=== PATIENT | male | born 1935 | race Caucasian/White ===

== ENCOUNTER 2019-06-24 09:02 | Inpatient (IN) | payer MEDICARE ==
[~2019-06-24] VITALS: Ht 173 cm; Wt 68.0 kg
[2019-06-24] VITALS (13 sets, daily range): BP systolic 88–152; BP diastolic 59–107
[~2019-06-24 09:02] MED LIST: ALL DAY RELIEF220 MG PO; ASPIRIN CHEWABL81 MG PO; DILANTIN100 MG PO; KEPPRA750 MG PO; LEVEMIR FL100 UNIT/1 SQ; LEVOXYL75 MCG PO; LIPITOR20 MG PO; MEGACE 40400 MG/10 PO; METOPROLOL SUCC25 M2 PO; NOVOLOG FL100 UNIT/2 SQ; SENOKOT8.6 MG PO; VITAMIN D50000 UNIT PO
[2019-06-24 09:34] LABS: BASO # 0.1 10*3/uL (0.0-0.1); BASO % 0.5 % (0.0-1.0); EOS # 0.1 10*3/uL (0.0-0.4); EOS % 0.4 % (1.0-4.0); HEMATOCRIT 46.4 % (42.0-52.0); HEMOGLOBIN 14.7 g/dl (14.0-18.0); LYMPH # 0.7 10*3/uL (1.3-4.4); LYMPH % 5.4 % (27.0-41.0); MEAN CELL VOLUME 97.3 fl (80.0-94.0); MEAN CORPUSCULAR HGB 30.8 pg (27.0-31.0); MEAN CORPUSCULAR HGB CONC 31.7 g/dl (33.0-37.0); MEAN PLATELET VOLUME 9.7 fl (9.6-12.3); MONO # 1.2 10*3/uL (0.1-1.0); MONO % 9.9 % (3.0-9.0); NEUT # 10.4 10*3/uL (2.3-7.9); NEUT % 82.7 % (47.0-73.0); PLATELET COUNT AUTOMATED 335 10*3/uL (130-400); RED BLOOD COUNT 4.77 10*6/uL (4.50-5.90); RED CELL DISTRI WIDTH 13.3 % (0-14.5); WHITE BLOOD COUNT 12.6 10*3/uL (4.8-10.8)
[2019-06-24 09:42] LABS: ACT PARTIAL THROMBO TIME 31.2 SECONDS (20.0-32.1); INTERNATIONAL NORM RATIO 0.9 (2.0-3.5)
[2019-06-24 09:47] LABS: ALBUMIN 2.9 gm/dl (3.1-4.5); ALKALINE PHOSPHATASE 153 U/L (45-117); BUN 20 mg/dl (7-24); CHLORIDE 106 mmol/L (98-107); CREATININE 1.55 mg/dL (0.70-1.30); POTASSIUM 4.4 mmol/L (3.5-5.1); SGOT/AST 28 IU/L (3-35); SGPT/ALT 43 U/L (12-78); SODIUM 141 mmol/L (136-145)
[2019-06-24 09:55] LABS: TROPONIN I < 0.015 ng/ml (<0.045)
--- NOTE | 2019-06-24 10:18 | NUR ---
PT HAD A CHANDE OF RYTHYM TO SVT. DR DOS SANTOS ADVISED.
[2019-06-24 10:51] LABS: BILIRUBIN NEGATIVE (NEGATIVE); BLOOD TRACE-INTACT (NEGATIVE); CLARITY SL CLOUDY (CLEAR); COLOR YELLOW (YELLOW); GLUCOSE 1+ (NEGATIVE); KETONE TRACE (NEGATIVE); LEUKO ESTERASE NEGATIVE (NEGATIVE); NITRITE NEGATIVE (NEGATIVE); PH 7.5 (5.0-9.0); UROBILINOGEN 0.2 E.U./dl (0.2-1.0)
[2019-06-24 10:58] LABS: BACTERIA 1+; MUCOUS 2+
[2019-06-24 11:01] LABS: ABG BASE EXCESS 1.8 mmol/L (-2.0-2.0); ARTERIAL BLOOD GAS PH 7.301 (7.35-7.45)
--- NOTE | 2019-06-24 11:30 | NUR ---
O.9 NS USED ONLY FOR ADENOSINE ADMINISTRATION AND GARETT DOWN
--- NOTE | 2019-06-24 11:49 | NUR ---
A 84, admitted to ICCU, under the services of ZAY Olguin DO with a diagnosis of SVT, SHORTNESS OF BREATH. Chief complaint is SHORTNESS OF BREATH. Patient arrived via ambulance from ER. Monitor applied. Initial assessment completed. Vital signs taken and recorded. ZAY OLGUIN DO notified of admission to the unit. Orders received. See assessment for past medical history, medications and allergies. Patient and/or family oriented to unit. [facility] ICCU visitation policy reviewed. Clothing/patient valuable form completed. KIMBERLEY DIALLO
[2019-06-24] MEDS ORDERED: BOOST237 ML PO (12:20)
--- NOTE | 2019-06-24 12:21 | NUR ---
MEDS RECONCILED WITH RECORDS FROM [place]. PT UP TO USE URINAL. HR TO 150'S WITH THIS ACTIVITY.
--- NOTE | 2019-06-24 12:46 | NUR ---
DR CHAIDEZ HERE TO SEE PT, AWARE HIS HR IS ELEVATED. SHE IS CALLING DR ORTIZ FOR DIRECTION.
--- NOTE | 2019-06-24 15:01 | NUR ---
DR ORTIZ VISITED EARLIER WHILE PT WAS STILL IN SVT. CARDIZEM 10 MG BOLUS WAS GIVEN THEN DRIP AT 5MG/HR. IV DIGOXIN PER ORDER. PT'S HR CAME TO 80'S WITHIN MINUTES OF INITIATION OF THESE MEDS. PT ATE HIS LUNCH. HE'S TAKEN HIMSELF OFF THE MONITOR SEVERAL TIMES AND IS VERY ANGRY THAT HE CAN'T GET UP AND GO TO THE BATHROOM. "THIS IS A JAIL". HE'S HAD 2 LITER NS BOLUS. HE WAS INCONTINENT LARGE AMOUNT OF URINE IN ADDITION TO USING URINAL WITH ASSIST, AGAIN ANGRY THAT I HAVE TO HELP HIM USE THE URINAL. HIS HR BACK TO 130'S AT THIS TIME. CARDIZEM INCREASED TO 10MG/HR.
--- NOTE | 2019-06-24 15:57 | NUR ---
MICHAEL CALLED TO CHECK ON PATIENT AND SAID IS BEHAVIOR IS "HARD" BECAUSE HE "DOESN'T HAVE MANY RESTRICTIONS" AND "HE'S STABLE TO TAKE HIMSELF TO THE BATHROOM". DR CHAIDEZ VISITED AND MADE AWARE THAT HR BACK UP, CARDIZEM INCREASED TO 10MG/HR. SHE CALLED DR ORTIZ AND ENTERED ORDERS THAT HE RECOMMENDED.
--- NOTE | 2019-06-24 16:31 | NUR ---
IV LOPRESSOR 5MG GIVEN OVER 5 MINUTES. HR TO 70'S WITHIN MINUTES.
--- NOTE | 2019-06-24 17:19 | NUR ---
DR MATHIS NOTIFIED OF NEW CONSULTATION. WANTS A SET OF ABG'S NOW.
[2019-06-24 17:45] LABS: ABG BASE EXCESS -0.5 mmol/L (-2.0-2.0); ARTERIAL BLOOD GAS PH 7.243 (7.35-7.45)
--- NOTE | 2019-06-24 18:31 | NUR ---
DR MATHIS NOTIFIED OF ABG RESULTS. ORDERS RECEIVED.
--- NOTE | 2019-06-24 22:30 | NUR ---
PATIENT BATHED AT THIS TIME, AFTER INCONTINENT OF LARGE INCONTINENCE OF URINE IN THE BED. CLEAN LINENS AND DRY BRIEF APPLIED. PATIENT DENIES COMPLAINTS. HAS BEEN WEARING BIPAP APPROXIMATELY 2 HOURS. CALL LIGHT WITHIN REACH. BED ALARM APPLIED AND ALSO BODY ALRAM DUE TO PATIENT MOVING FAST AND NOT ALWAYS SETTING BED ALARM OFF.
[2019-06-25] VITALS (12 sets, daily range): BP systolic 90–135; BP diastolic 59–77
--- NOTE | 2019-06-25 03:25 | NUR ---
Patient resting quietly with no c/o discomfort. Respirations easy and regular. Vital signs stable. No overt distress. RIGO KRISHNA
[2019-06-25 05:32] LABS: ALBUMIN 2.3 gm/dl (3.1-4.5); BUN 22 mg/dl (7-24); CHLORIDE 110 mmol/L (98-107); HDL CHOLESTEROL 32 mg/dl (40-60); POTASSIUM 4.3 mmol/L (3.5-5.1); SGOT/AST 23 IU/L (3-35); SODIUM 145 mmol/L (136-145); TOTAL PROTEIN 5.9 gm/dL (6.4-8.2)
[2019-06-25 05:43] LABS: ALKALINE PHOSPHATASE 137 U/L (45-117); CHOLESTEROL 116 mg/dL (<200); CREATININE 1.25 mg/dL (0.70-1.30); LDL CHOLESTEROL 67 mg/dL (9-159); PHOSPHOROUS 3.8 mg/dL (2.5-4.9); SGPT/ALT 42 U/L (12-78); TRIGLYCERIDES 84 mg/dl (<150); VLDL CHOLESTEROL 17 mg/dL (6-40)
[2019-06-25 06:13] LABS: HEMOGLOBIN 12.8 g/dl (14.0-18.0); MEAN CELL VOLUME 99.8 fl (80.0-94.0); MEAN CORPUSCULAR HGB 31.1 pg (27.0-31.0); MEAN CORPUSCULAR HGB CONC 31.2 g/dl (33.0-37.0); MEAN PLATELET VOLUME 10.2 fl (9.6-12.3); PLATELET COUNT AUTOMATED 300 10*3/uL (130-400); RED BLOOD COUNT 4.11 10*6/uL (4.50-5.90); RED CELL DISTRI WIDTH 13.6 % (0-14.5)
--- NOTE | 2019-06-25 07:15 | NUR ---
Shift chart check completed.24 HR chart check completed.
[2019-06-25 07:28] LABS: ABG BASE EXCESS 0.1 mmol/L (-2.0-2.0); ARTERIAL BLOOD GAS PH 7.338 (7.35-7.45)
[2019-06-25 07:31] LABS: BURR CELLS FEW; POLYCHROMASIA SLIGHT; TOTAL CELLS COUNTED 100 #CELLS
[2019-06-25 07:32] LABS: PLATELET SUFFICIENCY NORMAL (NORMAL)
[2019-06-25 07:39] LABS: VITAMIN D, 25-HYDROXY 35.7 ng/mL (30-100)
--- NOTE | 2019-06-25 08:44 | NUR ---
Faxed updated clinicals to [facility] for review. Patient is ok to return to assisted living when medically stable for discharge. Patient does not currently use oxygen at home.
--- NOTE | 2019-06-25 09:22 | NUR ---
Occupational therapy orders received and chart reviewed. Patient was eating breakfast upon arrival. Patient was agreeable to completing an OT evaluation later this morning. Thank you. Sanaz Davalos, OTR/L
--- NOTE | 2019-06-25 09:25 | NUR ---
PHYSICAL THERAPY Attempted to see pt for evaluation in ICU presently eating breakfast, also awaiting results of doppler studies will follow late in the AM/PM Helen Almeida PT
--- NOTE | 2019-06-25 09:29 | NUR ---
ON ASSESSMENT PATIENT IS CALM, KNOWS HE'S IN THE HOSPITAL, THOUGHT HE WAS IN LOWELL. PT ACCOMPANIED TO RADIOLOGY FOR CTA (IV INFILTRATED DURING PROCEDURE), AND VENOUS DOPPLERS. PT TOLERATED WELL. AT ONE POINT WHILE OFF THE FLOOR THE MONITOR ALARMED AT 45. CARDIZEM HAD BEEN ON AT 5MG/HR, TURNED OFF AND HAS REMAINED OFF. ON REVIEW OF THE STRIP THE 45 HR APPEARED TO BE ARTIFACT. IV FLUIDS CONTINUE AT 100/HR. DR BEAVERS HAS VISITED.
--- NOTE | 2019-06-25 12:26 | NUR ---
RESTING EASILY. BIPAP IN PLACE.
--- NOTE | 2019-06-25 12:30 | NUR ---
Occupational therapy orders received and OT evaluation completed in full on floor four in the ICCU. Patient precautions include fall risk, ww use, R UE IV line, heart monitor, 4L02, and s/p crani with helmet for OOB activity. Per OT eval and POC, OT recommends a SNF. Patient would benefit from skilled OT treatment to maximize safety and independence with ADLs, mobility, and transfers. Patient complexity is moderate, 57047. Thank you for the referral. Sanaz Davalos, OTR/L
--- NOTE | 2019-06-25 12:58 | NUR ---
DR ORTIZ IN. REVIEWED MEDS/RHYTHM WITH HIM. ORDERS RECEIVED.
--- NOTE | 2019-06-25 13:35 | NUR ---
UP IN CHAIR, ATE WELL FOR LUNCH. ORAL CARDIZEM CD 180 GIVEN. CARDIZEM DRIP DECREASED BY 50%. FORESTRY EXTENSION SPECIALIST AWARE PT IS NOW TELEMETRY STATUS.
--- NOTE | 2019-06-25 13:56 | NUR ---
PHYSICAL THERAPY James completed moderate level of complexity 31095 recomend SNF at discharge pending progess with ambulation. PT to work on transfers,amb, strenghthening/balanc and safety. Helen Almeida PT
--- NOTE | 2019-06-25 14:37 | NUR ---
ASSISTED BACK TO BED. IVF BAG COMPLETED AND D/C. CARDIZEM DRIP D/C ORAL CARDIZEM CD HAS BEEN GIVEN. BED IN LOW POSITION WITH WHEELS LOCKED. BED EXIT ALARM ACTIVATED.
--- NOTE | 2019-06-25 14:39 | NUR ---
RELEASE OF INFORMATION WAS SIGNED TO [facility] THIS AM WHEN PT'S DAUGHTER WAS HERE.
--- NOTE | 2019-06-25 15:18 | NUR ---
PT'S GIRLFRIEND CALLED AND UPDATES GIVEN.
[2019-06-26] VITALS: BP 107/63
[2019-06-26 04:00] VITALS: BP 125/76
[2019-06-26 05:35] LABS: BASO % 0.3 % (0.0-1.0); EOS # 0.2 10*3/uL (0.0-0.4); EOS % 1.6 % (1.0-4.0); HEMATOCRIT 41.7 % (42.0-52.0); HEMOGLOBIN 12.8 g/dl (14.0-18.0); LYMPH # 0.8 10*3/uL (1.3-4.4); LYMPH % 7.9 % (27.0-41.0); MEAN CORPUSCULAR HGB 30.4 pg (27.0-31.0); MEAN CORPUSCULAR HGB CONC 30.7 g/dl (33.0-37.0); MONO # 1.2 10*3/uL (0.1-1.0); MONO % 11.1 % (3.0-9.0); NEUT # 8.2 10*3/uL (2.3-7.9); NEUT % 78.3 % (47.0-73.0); PLATELET COUNT AUTOMATED 284 10*3/uL (130-400); RED BLOOD COUNT 4.21 10*6/uL (4.50-5.90); RED CELL DISTRI WIDTH 13.5 % (0-14.5); WHITE BLOOD COUNT 10.5 10*3/uL (4.8-10.8)
[2019-06-26 05:41] LABS: BUN 22 mg/dl (7-24); CHLORIDE 108 mmol/L (98-107); CREATININE 1.08 mg/dL (0.70-1.30); POTASSIUM 4.6 mmol/L (3.5-5.1); SODIUM 142 mmol/L (136-145)
[2019-06-26 08:00] VITALS: BP 133/80
--- NOTE | 2019-06-26 08:00 | NUR ---
PATIENT AO X 3 AWAITING BREAKFAST. NO COMPLAINTS, POX 96% 4L NC.
[2019-06-26 12:00] VITALS: BP 122/72
--- NOTE | 2019-06-26 14:55 | NUR ---
DR. HAN HERE AND SAW PATIENT IN SVT THAT BROKE TO SINUS TACHY. ORDER FOR 60 ADDITIONAL PO CARDIZEM TO BE GIVEN.
[2019-06-26 16:00] VITALS: BP 125/64
--- NOTE | 2019-06-26 19:50 | NUR ---
24 HOUR CHART CHECK COMPLETED
[2019-06-26 20:00] VITALS: BP 142/93
--- NOTE | 2019-06-26 20:30 | NUR ---
PATIENT ASSESSMENT COMPLETED AT THIS TIME WITHOUT INCIDENT. PATIENT ALERT TO PERSON AND TIME ONLY AT TIME OF ASSESSMENT. MEDICATIONS GIVEN ORALLY WITHOUT INCIDENT, MEDICATIONS EXPLAINED TO PATIENT THEY WERE GIVEN PER HIS REQUEST. BED ALARM ON AND FUNCTIONAL AT THIS TIME. CALL LIGHT WITHIN REACH, WILL CONTINUE TO MONITOR.
--- NOTE | 2019-06-26 22:09 | NUR ---
DR ORTIZ ANSWERING SERVICE CONTACTED FOR PATIENT HR 170-180. MESSAGE LEFT AND PAGE SENT PER GENEVA AT ANSWERING SERVICE.
--- NOTE | 2019-06-26 22:14 | NUR ---
DR. ORTIZ RETURNED CALL, ORDERS RECEIVED AT THIS TIME, SEE EMAR.
--- NOTE | 2019-06-26 22:25 | NUR ---
ORDERED CARDIZEM BOLUS HELD AT THIS TIME DUE TO PATIENT HEART RATE IN THE 90'S-104 AT THIS TIME. PATIENT CURRENTLY ON BIPAP AND RESTING IN A POSITION OF COMFORT IN BED. CALL LIGHT WITHIN REACH, WILL CONTINUE TO MONITOR.
[2019-06-27] VITALS: BP 116/76
[2019-06-27 04:00] VITALS: BP 121/78
--- NOTE | 2019-06-27 04:05 | NUR ---
PATIENT ASSISTED TO BEDSIDE COMMODE AT THIS TIME, HELMET PLACED ON PATIENT HEAD PRIOR TO LEAVING THE BED. PATIENT VOIDED URINE AND RETURNED TO BED, HELMET REMOVED. PATIENT DENIES ANY PAIN AT THIS TIME. CURRENTLY ON NC 4LPM. MONITOR AND PULSE OX IN USE. MOIST, NON-PRODUCTIVE COUGH NOTED AT THIS TIME. CALL LIGHT WITHIN REACH, WILL CONTINUE TO MONITOR.
[2019-06-27 06:09] LABS: BUN 19 mg/dl (7-24); CHLORIDE 109 mmol/L (98-107); POTASSIUM 4.2 mmol/L (3.5-5.1); SODIUM 142 mmol/L (136-145)
[2019-06-27 06:13] LABS: BASO # 0.1 10*3/uL (0.0-0.1); BASO % 0.5 % (0.0-1.0); EOS # 0.2 10*3/uL (0.0-0.4); EOS % 1.4 % (1.0-4.0); HEMATOCRIT 42.1 % (42.0-52.0); HEMOGLOBIN 13.1 g/dl (14.0-18.0); LYMPH # 0.8 10*3/uL (1.3-4.4); LYMPH % 7.6 % (27.0-41.0); MEAN CELL VOLUME 96.8 fl (80.0-94.0); MEAN CORPUSCULAR HGB 30.1 pg (27.0-31.0); MEAN CORPUSCULAR HGB CONC 31.1 g/dl (33.0-37.0); MEAN PLATELET VOLUME 10.1 fl (9.6-12.3); MONO # 1.3 10*3/uL (0.1-1.0); MONO % 11.6 % (3.0-9.0); NEUT # 8.7 10*3/uL (2.3-7.9); NEUT % 78.4 % (47.0-73.0); PLATELET COUNT AUTOMATED 299 10*3/uL (130-400); RED BLOOD COUNT 4.35 10*6/uL (4.50-5.90); RED CELL DISTRI WIDTH 13.3 % (0-14.5); WHITE BLOOD COUNT 11.1 10*3/uL (4.8-10.8)
--- NOTE | 2019-06-27 06:59 | NUR ---
Shift chart check completed.24 HR chart check completed.
[2019-06-27 08:05] VITALS: BP 160/80
--- NOTE | 2019-06-27 09:40 | NUR ---
PT WAS UP WITH HIS WALKER AND ONE ASSIST TO THE CHAIR, ATE ABOUT 50% OF HIS BREAKFAST. ASSISTED BACK TO BED. DR BEAVERS HAS VISITED. MADE AWARE OF SVT OVERNIGHT THAT CONVERTED ON ITS OWN WITHOUT INTERVENTION.
[2019-06-27 12:00] VITALS: BP 154/89
--- NOTE | 2019-06-27 12:43 | NUR ---
DR MATHIS HERE AND ROUNDED
--- NOTE | 2019-06-27 12:55 | NUR ---
DR MATHIS HERE TO SEE PT. ABG'S PER RESPIRATORY.
[2019-06-27 13:02] LABS: ABG BASE EXCESS 2.9 mmol/L (-2.0-2.0); ARTERIAL BLOOD GAS PH 7.356 (7.35-7.45)
--- NOTE | 2019-06-27 13:12 | NUR ---
PT CONSENTED TO WEAR BIPAP. [employer] GAME FOUND ON THE TV FOR HIM.
--- NOTE | 2019-06-27 13:50 | NUR ---
TRANSFERRED VIA W/C TO [facility] ON TELEMETRY [id number].
--- NOTE | 2019-06-27 14:20 | NUR ---
REPORT TO [facility] ON 4E. PHONE MESSAGE LEFT FOR HIS DAUGHTER HUMBERTO, THAT HE'D BEEN MOVED TO 407.
[2019-06-27 16:00] VITALS: BP 155/94
--- NOTE | 2019-06-27 16:00 | NUR ---
DR. ZAIDI HERE AND NEW ORDER FOR CARDIZEM TO BE INCREASED TO BID, FAMILY AT BEDSIDE. PATIENT AGITATED STATES HE FEELS LIKE HE'S IN LONG TERM.
--- NOTE | 2019-06-27 18:28 | NUR ---
NOTIFIED DR. HERRERA OF NO IV SITE PATIENT PULLED OUT AND UNBLE TO OBTAIN NEW SITE DESPITE MULTIPLE ATTEMPTS.
--- NOTE | 2019-06-27 19:50 | NUR ---
PT IS VERY AGITATED IN ROOM. PT UP, SETTING OFF BED ALARM, AND YELLING AT RNs. PT REFUSING TO WEAR OXYGEN AND REFUSING TO WEAR HELMET. PT THREATENS RN, STATING "IF YOU GET ANY CLOSER, I'LL PUNCH YOU RIGHT IN THE MOUTH." RN EXPLAINED TO PATIENT THAT SHE IS NOT TRYING TO HURT HIM OR RESTRAIN HIM. RN REASSURED PT THAT SHE IS ONLY TRYING TO KEEP HIM SAFE BY PREVENTING HIM FROM FALLING & ENCOURAGED HIM TO WEAR O2 HE IS VISIBLY SOB. PT REFUSING TO LISTEN. PT TOOK HELMET AND THREW IT AT ANOTHER RN, HITTING THE WALL INSTEAD. ONE RN REMAINED IN ROOM THIS RN CALLED TO UPDATE ON SITUTION. RN EXPLAINED THAT PT REFUSING TO LISTEN/WEAR O2 DESPITE EDUCATION/REORIENTATION EFFORTS. INSTRUCTED TO ATTEMPT TO CALM PT & GIVE HIM SPACE PRIOR TO GIVING MEDICATION. PT AGREED TO LAY IN BED, BUT REFUSING TO WEAR O2. RN WILL CALL DAUGHTER TO HAVE HER ASSIST TO CALM PT.
--- NOTE | 2019-06-27 19:53 | NUR ---
Pt refused breathing tx. Told me to "get out".
--- NOTE | 2019-06-27 19:59 | NUR ---
RN CALLED DAUGHTER (AMY) IN ATTEMPT TO HAVE HER CALM PT DOWN BY TALKING ON PHONE WITH HIM. RN EXPLAINED SITUATION AND SUGGESTED THAT PT MAY LISTEN TO SOMEONE HE TRUSTS. RN ONLY CONCERNED ABOUT PT'S SAFETY. AMY AGREES TO TALK WITH PATIENT. PHONE CALL TRANSFERRED INTO PT'S ROOM. RN WILL CONTINUE TO MONITOR.
--- NOTE | 2019-06-27 20:02 | NUR ---
PT IS NOW RESTING IN BED AFTER TALKING TO DAUGHTER ON PHONE. O2 REMAINS OFF & PATIENT REFUSING TO WEAR O2 OR HAVE VITALS TAKEN AT THIS TIME. WILL ATTEMPT TO REAPPLY NASAL CANNULA AT LATER TIME AFTER AGITATION HAS SUBSIDED.
[2019-06-27 21:15] VITALS: BP 137/83
--- NOTE | 2019-06-27 21:56 | NUR ---
FAMILY HAD CONCERNS ABOUT PT BEING ON DILA
--- NOTE | 2019-06-27 22:00 | NUR ---
PATIENT'S DAUGHTERS QUESTIONING WHETHER PT IS TAKING DILANTIN @ [facility]. PER PAPERWORK SENT FROM [place], PT IS TAKING DILANTIN SINCE AT LEAST 04/20/2019. DAUGHTERS RE[facility]ING RN [id number]. RN CALLED [employer] AND SPOKE TO CHAITANYA EMMANUEL. PER [facility], PT HAS BEEN ON DILANTIN 100 MG BID SINCE HE CAME TO LIVE THERE IN 2017. STATES THAT 04/20/19 WAS JUST THE MOST RECENT RENEW DATE. RN RELAYED THIS INFORMATION TO DAUGHTERS. PO DILANTIN GIVEN PER ORDER.
--- NOTE | 2019-06-27 23:26 | NUR ---
Pt agitated. Pt will not wear BiPap. Will attempt to try later.
[2019-06-28] VITALS: BP 158/86
--- NOTE | 2019-06-28 00:16 | NUR ---
PT FOUND WITH NC OUT OF NOSE. POX 88% ON ROOM AIR. O2 APPLIED AND PATIENT REPOSITIONED IN BED. POX UP TO 94% ON 3L NC. DAUGHTER IN ROOM. HAS PERMISSION TO SPEND THE NIGHT PER SHIFT DIRECTOR. RN EDUCATED PT & FAMILY TO NOTIFY RN IF PT CONTINUES TO TAKE NC OFF. ALSO EMPHASIZED THE IMPORTANCE OF WEARING O2, PT HAS BEEN DESATTING EASILY. PT & FAMILY VERBALIZE UNDERSTANDING. WILL MONITOR CALL LIGHT IN REACH. BED ALARM INTACT. SIDE RAILS UP X4 PER FAMILY REQUEST. RN EXPLAINED THAT THIS IS CONSIDERED A RESTRAINT. FAMILY VERBALIZES UNDERSTANDING AND WANTS TO KEEP SIDE RAILS UP X4.
--- NOTE | 2019-06-28 00:57 | NUR ---
PT'S DAUGHTER CALLED OUT STATING PT WILL NOT KEEP OXYGEN IN NOSE AND STATES HE IS SHORT OF BREATH. RN IN TO SEE PATIENT. PT REPOSITIONED IN BED FOR OPTIMAL BREATHING. POX 94% ON 3L NC. RN ENCOURAGED PT TO BREATHE IN THROUGH NOSE AND OUT THROUGH MOUTH. PT VERBALLY AGREES TO WEAR BIPAP FOR A WHILE. RESPIRATORY NOTIFIED. WILL MONITOR. CALL LIGHT IN REACH. BED ALARM INTACT.
--- NOTE | 2019-06-28 01:11 | NUR ---
PT PLACED ON BIPAP BY RESPIRATORY THERAPY. CONTINUOUS POX APPLIED PER POLICY. WILL MONITOR. CALL LIGHT IN REACH. BED ALARM INTACT. DAUGHTER AT BEDSIDE.
--- NOTE | 2019-06-28 02:02 | NUR ---
PT VERY FIDGETY AND RESTLESS. RR 35 PER BIPAP. PT BREATHING AGAINST MASK AND PULLING AT TUBING. PT TAKEN OFF BIPAP AND O2 APPLIED VIA 2L NC. RESPIRATORY NOTIFIED. WILL MONITOR. BED LOCKED IN LOW POSITION, BED ALARM INTACT, CALL LIGHT IN REACH. DAUGHTER AT BEDSIDE.
--- NOTE | 2019-06-28 03:15 | NUR ---
PT VERY AGITATED IN ROOM, SETTING OFF BED ALARM/BODY ALARM. PT ALSO TAKING OFF INSULATION BOARD COATER OPERATOR. RN TRIED TO REORIENT PT AND REPLACE MONITOR LEADS. PT RESPONDS "YOU GO AHEAD AND TRY TO PUT THAT ON ME, SEE WHAT HAPPENS." PT UNWILLING TO COOPERATE WITH STAFF AND/OR DAUGHTER. THIS RN CALLED FOR FURTHER DIRECTION. AWARE THAT PT ADMITTED WITH SVT AND IS REFUSING TO WEAR INSULATION BOARD COATER OPERATOR. ALSO AWARE THAT PT IS SOB AND REFUSING TO WEAR NASAL CANNULA. INSTRUCTED THIS RN TO GO BACK INTO ROOM AND ASK PATIENT IF HE WANTS SOMETHING TO HELP HIM SLEEP. RN DID INSTRUCTED. PATIENT REPLIED "I DON'T WANT WHAT YOU'RE PUSHING." RN EXPLAINED THAT SHE IS NOT PUSHING ANYTHING. PATIENT REPLIED "YOU TELL THE DOCTOR TO STICK IT WHERE SHE KNOWS BEST." RN RELAYED REPLY TO . STATES TO MONITOR PT, GIVE HIM TIME TO COOL DOWN. NO MEDICATION ORDERS RECEIVED AT THIS TIME. AWARE INSULATION BOARD COATER OPERATOR AND/OR NASAL CANNULA NOT BEING WORN. PT LEFT IN ROOM WITH BED LOCKED IN LOWEST POSITION. BED ALARM INTACT. SIDE RAILS UP X4 PER FAMILY REQUEST. CALL LIGHT IN REACH. DAUGHTER REFUSING TO SIT IN ROOM WITH PT AT THIS TIME SHE SAYS SHE IS "TOO FRUSTRATED" WITH HER FATHER. STATES SHE CALLED HER SISTER TO COME SIT WITH HIM SHE "CANNOT DO A WHOLE NIGHT OF THIS." WILL MONITOR PT.
--- NOTE | 2019-06-28 03:15 | NUR ---
PT VERY AGITATED IN ROOM, SETTING OFF BED ALARM/BODY ALARM. PT ALSO TAKING OFF CONVEYANCER. RN TRIED TO REORIENT PT AND REPLACE MONITOR LEADS. PT RESPONDS "YOU GO AHEAD AND TRY TO PUT THAT ON ME, SEE WHAT HAPPENS." PT UNWILLING TO COOPERATE WITH STAFF AND/OR DAUGHTER. THIS RN CALLED FOR FURTHER DIRECTION. AWARE THAT PT ADMITTED WITH SVT AND IS REFUSING TO WEAR CONVEYANCER. ALSO AWARE THAT PT IS SOB AND REFUSING TO WEAR NASAL CANNULA. INSTRUCTED THIS RN TO GO BACK INTO ROOM AND ASK PATIENT IF HE WANTS SOMETHING TO HELP HIM SLEEP. RN DID INSTRUCTED. PATIENT REPLIED "I DON'T WANT WHAT YOU'RE PUSHING." RN EXPLAINED THAT SHE IS NOT PUSHING ANYTHING. PATIENT REPLIED "YOU TELL THE DOCTOR TO STICK IT WHERE SHE KNOWS BEST." RN RELAYED REPLY TO . STATES TO MONITOR PT, GIVE HIM TIME TO COOL DOWN. NO MEDICATION ORDERS RECEIVED AT THIS TIME. AWARE CONVEYANCER AND/OR NASAL CANNULA NOT BEING WORN. PT LEFT IN ROOM WITH BED LOCKED IN LOWEST POSITION, BED ALARM INTACT, SIDE RAILS UP X4 PER PT REQUEST. CALL LIGHT IN REACH. DAUGHTER REFUSING TO SIT IN ROOM WITH PATIENT AT THIS TIME SHE SAYS SHE IS "TOO FRUSTRATED" WITH HER DAD. STATES SHE CALLED HER SISTER TO COME STAY WITH HIM "SHE CANNOT DO A WHOLE NIGHT OF THIS." WILL MONITOR PATIENT. HER
--- NOTE | 2019-06-28 03:39 | NUR ---
PT TELLING STAFF TO "GET THE H OUT OF THE ROOM." STATES HE WANTS TO LIVE HIS OWN LIFE AND TO NOT TOUCH HIM OR WE "WILL BE SORRY." RN TRYING TO DE-ESCALATE SITUATION WITHOUT SUCCESS. PA IN ROOM WITH PT AT THIS TIME. WILL MONITOR. DAUGHTER REMAINS OUTSIDE OF ROOM IN RECLINER CHAIR.
--- NOTE | 2019-06-28 03:59 | NUR ---
PATIENT'S OTHER DAUGHTER, HUMBERTO, HERE TO SIT WITH PT. PT AGREED TO ALLOW CONSTRUCTION OPERATIONS MANAGER PUT ON, BUT THEN TOOK IT OFF AGAIN SHORTLY AFTER. WILL ATTEMPT TO REAPPLY AT LATER TIME. O2 IN USE AT PRESENT TIME VIA 3L NC.
--- NOTE | 2019-06-28 04:08 | NUR ---
DAUGHTER HUMBERTO IN ROOM. PT SITTING UP IN CHAIR. BODY ALARM INTACT. PT AGREES TO WEAR TRANSITIONAL LIVING SPECIALIST. HR 100S PER CM. PT REFUSING OTHER VITALS AT THIS TIME. WILL MONITOR. CALL LIGHT IN REACH.
--- NOTE | 2019-06-28 04:19 | NUR ---
PT MUCH MORE COOPERATIVE AT THIS TIME BUT TELLS RN "DON'T WAKE ME UP IF I FALL ASLEEP." RN OFFERED TO GIVE PO SYNTHROID SCHEDULED FOR 0600 NOW. PT AGREES TO TAKE PILL. PILL TAKEN WITHOUT DIFFICULTY. WILL MONITOR. DAUGHTER, HUMBERTO, AT BEDSIDE.
--- NOTE | 2019-06-28 06:45 | NUR ---
BSG 155. PT REFUSING INSULIN COVERAGE AT THIS TIME. DAUGHTER AT BEDSIDE, AGREES WITH PATIENT'S DECISION. WILL MONITOR. CALL LIGHT IN REACH. BED ALARM INTACT.
[2019-06-28 08:00] VITALS: BP 172/94
[2019-06-28 08:05] LABS: HEMATOCRIT 44.6 % (42.0-52.0); HEMOGLOBIN 13.9 g/dl (14.0-18.0); MEAN CELL VOLUME 97.6 fl (80.0-94.0); MEAN CORPUSCULAR HGB 30.4 pg (27.0-31.0); MEAN CORPUSCULAR HGB CONC 31.2 g/dl (33.0-37.0); MEAN PLATELET VOLUME 9.8 fl (9.6-12.3); PLATELET COUNT AUTOMATED 308 10*3/uL (130-400); RED BLOOD COUNT 4.57 10*6/uL (4.50-5.90); RED CELL DISTRI WIDTH 13.4 % (0-14.5); WHITE BLOOD COUNT 14.6 10*3/uL (4.8-10.8)
[2019-06-28 08:33] LABS: BUN 17 mg/dl (7-24); CHLORIDE 107 mmol/L (98-107); CREATININE 0.95 mg/dL (0.70-1.30); POTASSIUM 4.5 mmol/L (3.5-5.1); SODIUM 142 mmol/L (136-145)
[2019-06-28 08:34] LABS: TOTAL CELLS COUNTED 100 #CELLS
[2019-06-28 08:35] LABS: PLATELET SUFFICIENCY NORMAL (NORMAL)
--- NOTE | 2019-06-28 09:00 | NUR ---
case management visits with patient, daughter Lakshmi was visiting, she stated patient is a resident of [facility] assisted [facility] facility, his is in [facility] dementia unit, and daughter states patient and are together all day at [facility], discussed with them a discharge plan including a short term [place] [facility] and daughter declined, she wants patient to return to [facility] when medically stable, she stated patient becomes confused at night and she feels he would do better in his own environment at [facility], she stated if he needs any therapy [facility] can set it up, case management will follow
--- NOTE | 2019-06-28 09:15 | NUR ---
PHYSICAL THERAPY Patient seen this am 1:1 for therapy visit and was resting supine in bed with his daughter present upon therapist arrival. Patient identified by name / and was very pleasant this morning. Patient voices no new c/o's and uses a protective helmet during all standing activities secondarty to HX of brain surgery. Patient transfers supine to sit EOB with MIN A and sit to stand CGA, use wh walker standing support. Patient also use of continuos O2-5L via NC and records 95% SpO2, HR 115 bpm at rest. Patien ambulates 25'x 1, CGA, wh walker, demonstrating bouts of impulsive behavior and Fair - walker safety / navigation. Patient unsteady during 90 / 180 turns and fatigues quickly upon return to EOB sit. Patient instructed on, then performed seated B LE therex, all planes, x 15 reps each to increase LE strength without c/o as SpO2 / HR remained WFL's throughout entire session. Patient transfered back to supine in bed SBA and remained with call light, tray table, telephone, bed alarm, bed side rails raised for safety. Will continue per POC as tolerated, total treatment time 23 minutes. Renny Ayala, TELEVISION SPECIALIST
--- NOTE | 2019-06-28 10:42 | NUR ---
Patient will return to [facility] with home physical therapy. Will require a prescription for PT and OT to treat and eval. Patient ok to return to [facility] when medically stable
--- NOTE | 2019-06-28 11:15 | NUR ---
MIKO CHAKRABORTY CALLED, PATIENT TRYING TO LEAVE VERY AGITATED. THERAPY AND MULTIPLE PEOPLE ASSISTED.
--- NOTE | 2019-06-28 11:20 | NUR ---
PHYSICAL THERAPY Therapist responed to code Terra as patient was attempting to get out of bed with his LE's hanging over bed side rails. Patient was very agitated, statiing " I want to get out of here" and "I want to go home". Patient received verbal encouragement and reassurance with several hospital staff members present. Patient presented with continuos O2-3L via NC and after being redirected, agreed to gait ex. Patient transfered sit to stand CGA and ambulated with use of wh walker, CGA, 150'x 1, demonstrating slow, steady miryam and no LOB. Patient still had several bouts of emotional c/o's of not being able to leave and returned to Kalie chair in hallway near doorway to patient room. Patient remained semi reclined in Kalie chair with lap tray and body alarm for safety in view of nursing station for visual Supervision. Will continue per POC as tolerated, total treatment time 17 minutes. Renny Ayala, LUGGAGE REPAIRER
--- NOTE | 2019-06-28 11:46 | NUR ---
Approached patient for OT services this am however pt appeared very agitated & said "I'm not doing anything with you today...just go away". Will attempt OT another time or date. Caridad SPRINGER/Gonzales
--- NOTE | 2019-06-28 12:31 | NUR ---
DR. CORREIA AWARE DAUGHTERS WANT TO TAKE THEIR FATHER HOME.
--- NOTE | 2019-06-28 12:47 | NUR ---
Patient updated clinicals faxed to [facility] for review. Patient is ok to return to assisted living when medically stable for discharge.,
[2019-06-28] MEDS ORDERED: MUCINEX1200 M1 PO (13:05)
[2019-06-28] MEDS ORDERED: LOPRESSOR25 MG PO (13:05)
[2019-06-28] MEDS ORDERED: CARDIZEM CD180 MG PO (13:05)
[2019-06-28] MEDS ORDERED: PREDNISONE10 MG PO (13:05)
[2019-06-28] MEDS ORDERED: DOXYCYCLINE100 M3 PO (13:05)
--- NOTE | 2019-06-28 13:30 | NUR ---
SPO2 ON RA AT REST..87% PT PLACED ON 2L SPO2 90-91% RN AWARE
--- NOTE | 2019-06-28 14:34 | NUR ---
PT REFUSED SATX STATES HE DOESN'T NEED ONE PT IN NO DISTRESS
[2019-06-28 16:00] VITALS: BP 153/97
--- NOTE | 2019-06-28 18:40 | NUR ---
MEDS GIVEN PER REQUEST [facility] BECAUSE THEIR PHARMACY IS CLOSED.
--- NOTE | 2019-06-28 18:41 | NUR ---
PATIENT TO BE DISCHARGED BACK TO [facility] VIA PRIVATE CAR.
--- NOTE | 2019-06-28 19:47 | NUR ---
PATIENT TAKEN OFF FLOOR VIA WHEELCHAIR IN CARE OF DAUGHTERS HUMBERTO & AMY. O2 TANK IN USE VIA 2L NC/PORTABLE O2 TANK. ALL PT BELONGINGS GATHERED AND SENT WITH PT. WILL NOTIFY [facility] OF PT DEPARTURE FROM HOSPITAL.
--- NOTE | 2019-06-28 19:49 | NUR ---
[facility] CALLED AT [phone]. NO ANSWER. RN WAS ABLE TO REACH STAFF AT [facility] AT [phone]. AWARE THAT PATIENT HAS JUST LEFT [facility] & IS ON WAY TO THEIR FACILITY VIA PRIVATE VEHICLE.
--- NOTE | 2019-06-28 20:25 | NUR ---
PATIENT'S PACKET WITH PRINTED SCRIPTS FOUND IN PHYSICAL CHART AT NURSE'S STATION. THIS PACKET WAS NOT SENT WITH PATIENT. THIS RN CALLED AND SPOKE TO CHAITANYA MUÑOZ, AT [facility]. UPDATED WANDA ON 5 PRINTED PRESCRIPTIONS IN CHART. AWARE THAT PT HAS ALREADY HAD ALL DOSES OF THESE MEDICATIONS FOR TODAY. RN ALSO CALLED PT'S DAUGHTER, UHMBERTO, ABOUT PATIENT'S PACKET. STATES SHE WILL COME TO [facility] TO MOLD YARD WORKER PACKET.
--- NOTE | 2019-06-29 07:49 | NUR ---
OCCUPATIONAL THERAPY CO-SIGN I approve of the Occupational Therapy notes written above. THEO FUNES OTR/Gnozales
--- NOTE | 2019-06-29 14:43 | NUR ---
PHYSICAL THERAPY CO-SIGN I approve of the Physical Therapy notes written above Helen Almeida PT
== END 2019-06-28 19:47 | disposition home or self-care (01) | DRG 871 ==
LOC: ED 09:02 → ICCU 10:55 → EDHOLD 10:55 → ICCU 11:26 → 4E 06-27 13:37
PROVIDERS: Emergency Medicine; Hospitalist; Internal Medicine; Internal Medicine Critical Care Medicine; ADMIT Family Medicine
PROC: 5A09357 Assistance with Respiratory Ventilation, Less than 24 Consecutive Hours, Continuous Positive Airway Pressure (ICD-10-PCS; principal; 2019-06-25)
PROC: 5A09357 Assistance with Respiratory Ventilation, Less than 24 Consecutive Hours, Continuous Positive Airway Pressure (ICD-10-PCS; 2019-06-26)
DX: A41.9 Sepsis, unspecified organism (principal); J18.9 Pneumonia, unspecified organism; N17.0 Acute kidney failure with tubular necrosis; J96.21 Acute and chronic respiratory failure with hypoxia; J96.22 Acute and chronic respiratory failure with hypercapnia; I47.1 Supraventricular tachycardia; E44.0 Moderate protein-calorie malnutrition; J94.8 Other specified pleural conditions; Z66 Do not resuscitate; E11.65 Type 2 diabetes mellitus with hyperglycemia; E55.9 Vitamin D deficiency, unspecified; E78.5 Hyperlipidemia, unspecified; I71.4 Abdominal aortic aneurysm, without rupture; E11.22 Type 2 diabetes mellitus with diabetic chronic kidney disease; N18.2 Chronic kidney disease, stage 2 (mild); E03.9 Hypothyroidism, unspecified; D53.9 Nutritional anemia, unspecified; G40.909 Epilepsy, unspecified, not intractable, without status epilepticus; R65.20 Severe sepsis without septic shock; I48.91 Unspecified atrial fibrillation; I12.9 Hypertensive chronic kidney disease with stage 1 through stage 4 chronic kidney disease, or unspecified chronic kidney disease; J98.6 Disorders of diaphragm; I51.7 Cardiomegaly; E11.51 Type 2 diabetes mellitus with diabetic peripheral angiopathy without gangrene; R91.8 Other nonspecific abnormal finding of lung field; R59.1 Generalized enlarged lymph nodes; J44.9 Chronic obstructive pulmonary disease, unspecified; F17.210 Nicotine dependence, cigarettes, uncomplicated; Z79.4 Long term (current) use of insulin; Z68.22 Body mass index [BMI] 22.0-22.9, adult; Z88.0 Allergy status to penicillin; Z79.82 Long term (current) use of aspirin; Z79.899 Other long term (current) drug therapy; Z90.49 Acquired absence of other specified parts of digestive tract; Z83.6 Family history of other diseases of the respiratory system; Z85.118 Personal history of other malignant neoplasm of bronchus and lung; Z92.3 Personal history of irradiation

== ENCOUNTER 2019-09-10 20:35 | Inpatient (IN) | payer MEDICARE ==
[~2019-09-10] VITALS: Ht 172.7 cm; Wt 65.6 kg
[~2019-09-10 20:35] MED LIST changes: +BOOST237 ML PO; +CARDIZEM CD180 MG PO; +DOXYCYCLINE100 M3 PO; +LOPRESSOR25 MG PO; +MUCINEX1200 M1 PO; +PREDNISONE10 MG PO
[2019-09-10 20:36] VITALS: BP 150/89
[2019-09-11 02:00] LABS: BASO % 0.2 % (0.0-1.0); EOS % 0.1 % (1.0-4.0); HEMATOCRIT 48.3 % (42.0-52.0); HEMOGLOBIN 15.2 g/dl (14.0-18.0); LYMPH # 1.7 10*3/uL (1.3-4.4); LYMPH % 10.8 % (27.0-41.0); MEAN CELL VOLUME 95.3 fl (80.0-94.0); MEAN CORPUSCULAR HGB CONC 31.5 g/dl (33.0-37.0); MEAN PLATELET VOLUME 9.8 fl (9.6-12.3); MONO # 1.3 10*3/uL (0.1-1.0); MONO % 8.3 % (3.0-9.0); NEUT # 12.8 10*3/uL (2.3-7.9); NEUT % 79.5 % (47.0-73.0); PLATELET COUNT AUTOMATED 269 10*3/uL (130-400); RED BLOOD COUNT 5.07 10*6/uL (4.50-5.90); RED CELL DISTRI WIDTH 14.2 % (0-14.5); WHITE BLOOD COUNT 16.1 10*3/uL (4.8-10.8)
[2019-09-11 02:15] LABS: INTERNATIONAL NORM RATIO 0.9 (2.0-3.5)
[2019-09-11 02:18] LABS: ALBUMIN 3.5 gm/dl (3.1-4.5); ALKALINE PHOSPHATASE 143 U/L (45-117); BUN 19 mg/dl (7-24); CHLORIDE 105 mmol/L (98-107); PHOSPHOROUS 2.6 mg/dL (2.5-4.9); POTASSIUM 3.8 mmol/L (3.5-5.1); SGOT/AST 25 IU/L (3-35); SGPT/ALT 41 U/L (12-78); SODIUM 142 mmol/L (136-145); TOTAL PROTEIN 7.5 gm/dL (6.4-8.2)
--- NOTE | 2019-09-11 02:20 | NUR ---
IV ACCESS UNSUCCESSFUL BY THIS RN. PATIENT STATES "NO MORE STICKS." DR DELGADILLO IS NOTIFIED AT THIS TIME.
[2019-09-11 02:45] VITALS: BP 180/95
--- NOTE | 2019-09-11 02:45 | NUR ---
Time: 244 A 84 year old [id number] admitted to 5E under services of VALENTIN HAMLIN DO. Pt. arrived via stretcher from ER. Chief complaint: CAME IN WITH C/O L.HIP PAIN STARTED YEST EVENING AFTER FALLING AT [facility]. ARGELIA ELIAS
--- NOTE | 2019-09-11 03:02 | NUR ---
PATIENT CURRENTLY HAS NO IV ACCESS .PATIENT REFUSING ANY MORE IV STICKS. STATED THEY STUCK HIM 3 TIMES DOWNSTAIRS AND THAT IS ENOUGH.
--- NOTE | 2019-09-11 03:24 | NUR ---
MED LIST REVIEWED WITH LIST FROM [facility].
[2019-09-11 03:45] VITALS: BP 160/80
[2019-09-11 08:00] VITALS: BP 147/81
--- NOTE | 2019-09-11 08:00 | NUR ---
Patient resting quietly with no c/o discomfort. Pain medication offered r/t fall with left hip pain on admission and pt declines at this time. Respirations easy and regular, on O2. Vital signs stable. No overt distress. SOSA MINOR R
--- NOTE | 2019-09-11 09:45 | NUR ---
PHYSICAL THERAPY PT EVAL COMPLETED ON LEVEL 5: FULL EVAL TO FOLLOW. RECOMMEND PT WHILE HERE TO ADDRESS RECENT FALL AND LIMITED ROM, STRENGTH AND FUNCTIONAL MOBILITY WELL PAIN. PT EVAL IS MDOERATE COMPLEXITY: 90919 D.C RECOMMENDATIONS ARE FOR RETURN TO [facility] IF ABLE AND WOULD ADVISE SHORT TERM SNF DUE TO DECREASED FUNCTIONAL STATUS IF HE MEETS CRITER[facility]. IF NOT WOULD ADVISE HOME HEALTH SERVICES AT [facility]. THANK YOU FOR REFERRAL CHACORTA FREGOSO PT
[2019-09-11 12:00] VITALS: BP 125/70
[2019-09-11 16:00] VITALS: BP 111/65
[2019-09-11 20:00] VITALS: BP 123/70
[2019-09-12] VITALS: BP 132/78
--- NOTE | 2019-09-12 06:08 | NUR ---
PATIENT REFUSED LABS THIS AM.
--- NOTE | 2019-09-12 06:56 | NUR ---
PATIENT SITTING IN GERICHAIR. RIPPED HELMET OFF AND THREW IT AND REFUSES TO PUT IT BACK ON. PA SITTING WITH PATIENT AT THIS TIME.
[2019-09-12 07:17] LABS: BASO % 0.1 % (0.0-1.0); EOS % 0.1 % (1.0-4.0); HEMATOCRIT 47.9 % (42.0-52.0); HEMOGLOBIN 15.1 g/dl (14.0-18.0); LYMPH # 1.4 10*3/uL (1.3-4.4); MEAN CORPUSCULAR HGB 30.3 pg (27.0-31.0); MEAN CORPUSCULAR HGB CONC 31.5 g/dl (33.0-37.0); MONO # 1.5 10*3/uL (0.1-1.0); MONO % 8.6 % (3.0-9.0); NEUT # 14.3 10*3/uL (2.3-7.9); NEUT % 82.5 % (47.0-73.0); PLATELET COUNT AUTOMATED 278 10*3/uL (130-400); RED BLOOD COUNT 4.99 10*6/uL (4.50-5.90); RED CELL DISTRI WIDTH 14.1 % (0-14.5); WHITE BLOOD COUNT 17.4 10*3/uL (4.8-10.8)
[2019-09-12 07:28] LABS: BUN 24 mg/dl (7-24); CHLORIDE 103 mmol/L (98-107); CREATININE 1.07 mg/dL (0.70-1.30); POTASSIUM 3.8 mmol/L (3.5-5.1); SODIUM 137 mmol/L (136-145)
[2019-09-12 08:00] VITALS: BP 111/61
--- NOTE | 2019-09-12 08:36 | NUR ---
Pt confused and agitated this am. Ambulated to BR and back with assist of 2 staff and walker, helmet on. Pt medicated with Tylenol for c/o left hip pain. Resp easy and nonlabored on O2. Body alarm and sitter in place for pt safety. Call light in reach. Will monitor
[2019-09-12 12:00] VITALS: BP 100/58
--- NOTE | 2019-09-12 14:06 | NUR ---
PT MEDICATED WITH TYLENOL FOR C/O LEFT HIP PAIN. CALL LIGHT IN REACH. BED ALARM IN USE FOR SAFETY. WILL MONITOR
--- NOTE | 2019-09-12 16:30 | NUR ---
PT REFUSES BSG TO TAKEN AT THIS TIME. NO S/S OF HYPO/HYPERGLYCEMIA NOTED.
--- NOTE | 2019-09-13 05:55 | NUR ---
PATIENT IN BED ALL NIGHT WITH NO EPISODES OF AGITATION OR TRYING TO GET OUT OF BED. PLEASANT THIS AM. WILL CONTINUE TO MONITOR.
[2019-09-13 06:56] LABS: BASO % 0.2 % (0.0-1.0); HEMATOCRIT 43.9 % (42.0-52.0); LYMPH # 1.7 10*3/uL (1.3-4.4); LYMPH % 14.5 % (27.0-41.0); MEAN CELL VOLUME 94.8 fl (80.0-94.0); MEAN CORPUSCULAR HGB 30.2 pg (27.0-31.0); MEAN CORPUSCULAR HGB CONC 31.9 g/dl (33.0-37.0); MEAN PLATELET VOLUME 10.2 fl (9.6-12.3); MONO # 1.1 10*3/uL (0.1-1.0); MONO % 9.6 % (3.0-9.0); NEUT # 8.7 10*3/uL (2.3-7.9); PLATELET COUNT AUTOMATED 238 10*3/uL (130-400); RED BLOOD COUNT 4.63 10*6/uL (4.50-5.90); RED CELL DISTRI WIDTH 14.4 % (0-14.5); WHITE BLOOD COUNT 11.6 10*3/uL (4.8-10.8)
[2019-09-13 08:00] VITALS: BP 126/78
--- NOTE | 2019-09-13 11:09 | NUR ---
Patient updated clinicals faxed to [facility] for review/ notified patient is a possible discharge to return today; Dr. Del Cid stating he will write a scipt for therapy at [facility]. Attempted to contact Alem at the facility, unable to contact
[2019-09-13 12:00] VITALS: BP 114/74
--- NOTE | 2019-09-13 12:26 | NUR ---
Patient is discharged to return to [facility] via [facility] at 14:00. DC information faxed, BIBI, nursing/steward/stewardess third class and family all notified.
--- NOTE | 2019-09-13 13:20 | NUR ---
Patient to be discharged to [facility] in 30 minutes. No OT evaluation could be completed before discharge from hospital. Charlotte Gore OTr/l
--- NOTE | 2019-09-13 14:04 | NUR ---
Discharge instructions reviewed with patient/family. Patient receptive and verbalizes understanding. Follow-up care arranged. Written instructions given to patient/family. DEEP MASON
--- NOTE | 2019-09-14 07:26 | NUR ---
PHYSICAL THERAPY CO-SIGN I approve of the Physical Therapy notes written above. Helen Almeida PT
== END 2019-09-13 14:25 | disposition home or self-care (01) | DRG 536 ==
LOC: ED 20:35 → 5E 09-11 01:12 → EDHOLD 09-11 01:12 → 5E 09-11 01:27
PROVIDERS: Student in an Organized Health Care Education/Training Program; ADMIT Emergency Medicine
DX: S72.012A Unspecified intracapsular fracture of left femur, initial encounter for closed fracture (principal); J96.11 Chronic respiratory failure with hypoxia; B37.89 Other sites of candidiasis; J96.12 Chronic respiratory failure with hypercapnia; D72.829 Elevated white blood cell count, unspecified; D72.810 Lymphocytopenia; E03.9 Hypothyroidism, unspecified; D53.9 Nutritional anemia, unspecified; E55.9 Vitamin D deficiency, unspecified; G40.909 Epilepsy, unspecified, not intractable, without status epilepticus; I71.4 Abdominal aortic aneurysm, without rupture; E78.5 Hyperlipidemia, unspecified; J44.9 Chronic obstructive pulmonary disease, unspecified; N18.2 Chronic kidney disease, stage 2 (mild); I48.91 Unspecified atrial fibrillation; M16.12 Unilateral primary osteoarthritis, left hip; Z66 Do not resuscitate; E11.65 Type 2 diabetes mellitus with hyperglycemia; E11.22 Type 2 diabetes mellitus with diabetic chronic kidney disease; Z51.5 Encounter for palliative care; W18.30XA Fall on same level, unspecified, initial encounter; Y92.89 Other specified places as the place of occurrence of the external cause; Y99.8 Other external cause status; Z79.4 Long term (current) use of insulin; Y93.89 Activity, other specified; Z79.82 Long term (current) use of aspirin; Z83.6 Family history of other diseases of the respiratory system; Z85.118 Personal history of other malignant neoplasm of bronchus and lung; Z99.81 Dependence on supplemental oxygen; Z82.49 Family history of ischemic heart disease and other diseases of the circulatory system; Z91.048 Other nonmedicinal substance allergy status; Z88.0 Allergy status to penicillin

== ENCOUNTER 2019-09-15 13:59 | Emergency (ER) | payer MEDICARE ==
[~2019-09-15] VITALS: Ht 172.7 cm; Wt 63.5 kg
== END 2019-09-15 17:55 | disposition other institution (70) ==
LOC: ED 13:59
DX: M25.551 Pain in right hip (principal); G89.29 Other chronic pain; I10 Essential (primary) hypertension; E11.9 Type 2 diabetes mellitus without complications; E03.9 Hypothyroidism, unspecified; G40.909 Epilepsy, unspecified, not intractable, without status epilepticus; Z87.891 Personal history of nicotine dependence; Z88.8 Allergy status to other drugs, medicaments and biological substances; Z88.0 Allergy status to penicillin; Z79.899 Other long term (current) drug therapy; Z79.82 Long term (current) use of aspirin; Z79.4 Long term (current) use of insulin; Z90.49 Acquired absence of other specified parts of digestive tract; W06.XXXA Fall from bed, initial encounter; Y93.89 Activity, other specified; Y92.89 Other specified places as the place of occurrence of the external cause; Y99.8 Other external cause status

== ENCOUNTER 2019-09-22 23:11 | Emergency (ER) | payer MEDICARE ==
[~2019-09-22] VITALS: Ht 172.7 cm; Wt 63.5 kg
== END 2019-09-23 02:07 | disposition short-term general hospital (02) ==
LOC: ED 23:11
DX: S72.002A Fracture of unspecified part of neck of left femur, initial encounter for closed fracture (principal); K21.9 Gastro-esophageal reflux disease without esophagitis; I10 Essential (primary) hypertension; R56.9 Unspecified convulsions; M19.90 Unspecified osteoarthritis, unspecified site; Z88.0 Allergy status to penicillin; Z88.8 Allergy status to other drugs, medicaments and biological substances; Z79.899 Other long term (current) drug therapy; Z79.82 Long term (current) use of aspirin; Z79.4 Long term (current) use of insulin; Z79.2 Long term (current) use of antibiotics; Z90.49 Acquired absence of other specified parts of digestive tract; W06.XXXA Fall from bed, initial encounter; Y93.89 Activity, other specified; Y92.89 Other specified places as the place of occurrence of the external cause; Y99.8 Other external cause status

== ENCOUNTER 2019-10-09 23:44 | Emergency (ER) | payer MEDICARE ==
[2019-10-10 00:37] LABS: BASO % 0.1 % (0.0-1.0); EOS % 0.1 % (1.0-4.0); HEMATOCRIT 42.3 % (42.0-52.0); HEMOGLOBIN 13.1 g/dl (14.0-18.0); LYMPH % 5.6 % (27.0-41.0); MEAN CELL VOLUME 98.8 fl (80.0-94.0); MEAN CORPUSCULAR HGB 30.6 pg (27.0-31.0); MONO # 1.4 10*3/uL (0.1-1.0); MONO % 8.4 % (3.0-9.0); NEUT # 14.4 10*3/uL (2.3-7.9); NEUT % 85.3 % (47.0-73.0); PLATELET COUNT AUTOMATED 296 10*3/uL (130-400); RED BLOOD COUNT 4.28 10*6/uL (4.50-5.90); RED CELL DISTRI WIDTH 14.8 % (0-14.5); WHITE BLOOD COUNT 16.9 10*3/uL (4.8-10.8)
[2019-10-10 00:47] LABS: ACT PARTIAL THROMBO TIME 30.3 SECONDS (20.0-32.1); INTERNATIONAL NORM RATIO 0.9 (2.0-3.5)
[2019-10-10 00:54] LABS: ALBUMIN 3.4 gm/dl (3.1-4.5); ALKALINE PHOSPHATASE 132 U/L (45-117); BUN 23 mg/dl (7-24); CHLORIDE 106 mmol/L (98-107); CREATININE 0.99 mg/dL (0.70-1.30); POTASSIUM 4.5 mmol/L (3.5-5.1); SGOT/AST 12 IU/L (3-35); SGPT/ALT 20 U/L (12-78); SODIUM 142 mmol/L (136-145)
[2019-10-10 00:57] LABS: TROPONIN I < 0.015 ng/ml (<0.045)
[2019-10-10] MEDS ORDERED: LEVAQUIN500 M2 PO (01:59)
== END 2019-10-10 02:48 | disposition other institution (70) ==
LOC: ED 23:44
PROVIDERS: Emergency Medicine Emergency Medical Services
DX: S01.81XA Laceration without foreign body of other part of head, initial encounter (principal); S80.211A Abrasion, right knee, initial encounter; S50.311A Abrasion of right elbow, initial encounter; J44.0 Chronic obstructive pulmonary disease with (acute) lower respiratory infection; J20.9 Acute bronchitis, unspecified; B35.1 Tinea unguium; E11.9 Type 2 diabetes mellitus without complications; K21.9 Gastro-esophageal reflux disease without esophagitis; M19.90 Unspecified osteoarthritis, unspecified site; Z98.890 Other specified postprocedural states; Z91.048 Other nonmedicinal substance allergy status; Z88.0 Allergy status to penicillin; Z79.899 Other long term (current) drug therapy; Z79.82 Long term (current) use of aspirin; Z90.49 Acquired absence of other specified parts of digestive tract; Z87.891 Personal history of nicotine dependence; W01.0XXA Fall on same level from slipping, tripping and stumbling without subsequent striking against object, initial encounter; Y93.89 Activity, other specified; Y92.129 Unspecified place in nursing home as the place of occurrence of the external cause; Y99.8 Other external cause status

== ENCOUNTER 2020-07-10 13:50 | Inpatient (IN) | payer MEDICARE ==
[~2020-07-10] VITALS: Ht 182.8 cm; Wt 57.3 kg
[~2020-07-10 13:50] MED LIST changes: +KEPPRA250 MG PO; +KEPPRA500 MG PO; -KEPPRA750 MG PO; +LEVAQUIN500 M2 PO; +LEVETIRACETAM500 MG PO; +VITAMIN D31250 MC1 PO; -VITAMIN D50000 UNIT PO
[2020-07-10 14:26] LABS: BASO # 0.1 10*3/uL (0.0-0.1); BASO % 0.5 % (0.0-1.0); HEMATOCRIT 41.6 % (42.0-52.0); LYMPH % 9.5 % (27.0-41.0); MEAN CELL VOLUME 98.8 fl (80.0-94.0); MEAN CORPUSCULAR HGB 30.9 pg (27.0-31.0); MEAN CORPUSCULAR HGB CONC 31.3 g/dl (33.0-37.0); MEAN PLATELET VOLUME 9.7 fl (9.6-12.3); MONO % 9.7 % (3.0-9.0); NEUT # 8.4 10*3/uL (2.3-7.9); NEUT % 79.2 % (47.0-73.0); PLATELET COUNT AUTOMATED 339 10*3/uL (130-400); RED BLOOD COUNT 4.21 10*6/uL (4.50-5.90); RED CELL DISTRI WIDTH 13.7 % (0-14.5); WHITE BLOOD COUNT 10.6 10*3/uL (4.8-10.8)
[2020-07-10 14:37] LABS: ACT PARTIAL THROMBO TIME 28.2 SECONDS (20.0-32.1)
[2020-07-10 14:45] LABS: ALBUMIN 3.1 gm/dl (3.1-4.5); ALKALINE PHOSPHATASE 107 U/L (45-117); BUN 36 mg/dl (7-24); CHLORIDE 105 mmol/L (98-107); LIPASE 84 U/L (73-393); POTASSIUM 4.5 mmol/L (3.5-5.1); SGOT/AST 21 IU/L (3-35); SGPT/ALT 48 U/L (12-78); SODIUM 140 mmol/L (136-145); TOTAL PROTEIN 7.3 gm/dL (6.4-8.2)
[2020-07-10 14:50] LABS: TROPONIN I < 0.015 ng/ml (<0.045)
[2020-07-10 18:30] VITALS: BP 121/70
--- NOTE | 2020-07-10 20:57 | NUR ---
PT RESTING IN BED WITH EYES CLOSED, CALL LIGHT WITHIN REACH, NO ACUTE DISTRESS NOTED UPOON THIS RN EXITING THE ROOM
--- NOTE | 2020-07-11 00:50 | NUR ---
PT RESTING IN BED WITH EYES CLOSED, CALL LIGHT WITHIN REACH, NO ACUTE DISTRESS NOTED UPON THIS RN EXITING THE ROOM
--- NOTE | 2020-07-11 01:17 | NUR ---
PT RESTING IN BED WITH EYES CLOSED CALL LIGHT WITHIN REACH NO ACUTE DISTRESS NOTED UPON EXITING THE ROOM
--- NOTE | 2020-07-11 02:01 | NUR ---
PT LINENS CHANGED, WATER PROVIDED, CALL LIGHT WITHIN REACH, NO ACUTE DISTRESS NOTED
[2020-07-11 02:02] VITALS: BP 108/67
--- NOTE | 2020-07-11 02:42 | NUR ---
HEALING SCAB ON LEFT CHEEK
[2020-07-11 06:13] LABS: MEAN CELL VOLUME 99.2 fl (80.0-94.0); MEAN CORPUSCULAR HGB 30.3 pg (27.0-31.0); MEAN CORPUSCULAR HGB CONC 30.5 g/dl (33.0-37.0); MEAN PLATELET VOLUME 9.9 fl (9.6-12.3); PLATELET COUNT AUTOMATED 318 10*3/uL (130-400); RED BLOOD COUNT 3.83 10*6/uL (4.50-5.90); RED CELL DISTRI WIDTH 13.4 % (0-14.5); WHITE BLOOD COUNT 8.1 10*3/uL (4.8-10.8)
[2020-07-11 06:31] LABS: ACT PARTIAL THROMBO TIME 28.5 SECONDS (20.0-32.1); INTERNATIONAL NORM RATIO 0.9 (2.0-3.5)
[2020-07-11 06:32] LABS: CHLORIDE 108 mmol/L (98-107); POTASSIUM 4.6 mmol/L (3.5-5.1); SODIUM 139 mmol/L (136-145)
[2020-07-11 06:50] LABS: TOTAL CELLS COUNTED 100 #CELLS
[2020-07-11 06:51] LABS: ALBUMIN 2.8 gm/dl (3.1-4.5); ALKALINE PHOSPHATASE 97 U/L (45-117); BUN 29 mg/dl (7-24); PLATELET SUFFICIENCY NORMAL (NORMAL); POLYCHROMASIA SLIGHT; SGOT/AST 16 IU/L (3-35); SGPT/ALT 44 U/L (12-78); TOTAL PROTEIN 6.9 gm/dL (6.4-8.2)
[2020-07-11 08:40] VITALS: BP 109/65
--- NOTE | 2020-07-11 08:41 | NUR ---
PT RESTING IN BED WITH EYES CLOSED, AWAKENED FRO BREAKFAST TRAY,
--- NOTE | 2020-07-11 09:00 | NUR ---
Development Representative in to talk to patient. Patient states lives at [facility] with other residents. There are no steps in the home. Physician: michelet dobbins Pharmacy: per [facility] Home health services: none Patient's level of ADLs: MINIMAL ASSIST Patient has working utilities: all working DME: walker, home oxygen Follow-up physician's appointment after d/c: will be made by hospitalist nurse director upon discharge Does patient want to access PORTAL?: no Discharge plan patient is a resident of [facility] and will return when discharged. case management will follow and set [facility] clinical updates. . RONI BOOKER
[2020-07-11 10:54] LABS: ABG BASE EXCESS -0.3 mmol/L (-2.0-2.0); ARTERIAL BLOOD GAS PH 7.354 (7.35-7.45)
--- NOTE | 2020-07-11 12:30 | NUR ---
PT AWAKE EATING LUNCH AT THIS TIME.
--- NOTE | 2020-07-11 15:07 | NUR ---
PT INCONTINENT OF URINE, DIAPER CHANGED WITH CLEAN GOWN AND BLANKET. PT TOLERATED.
[2020-07-11 15:09] VITALS: BP 100/59
--- NOTE | 2020-07-11 18:15 | NUR ---
INCONTINENT OF URINE. DEPENDS CHANGED. DENIES NEEDING ANYTHING TO EAT AT THIS TIME. CALL LIGHT IN REACH.
[2020-07-11 20:40] VITALS: BP 112/47
--- NOTE | 2020-07-11 20:40 | NUR ---
Time: 2039 A 85 year old MALE admitted to 5E under services of ZAY HANNON DO. Pt. arrived via stretcher from ER. Chief complaint: CHANGE IN MENTAL STATUS. DEENA FARIAS
--- NOTE | 2020-07-11 21:00 | NUR ---
PT INCONTINENT OF URINE. PT CLEANED UP, NEW BRIEF/CHUCKS/LINENS PROVIDED. BUTTOCKS NOTED TO BE RED, BUT BLANCHABLE. COCCYX VERY BONY. AIDE IN ROOM TO ASSIST RN. AWARE PT IS TO BE TURNED SIDE TO SIDE Q2H. BARRIER CREAM TO BE APPLIED W/ BRIEF CHANGES.
--- NOTE | 2020-07-11 21:17 | NUR ---
NO PAPERS RECEIVED FROM [employer]. ATTEMPTED TO CALL [facility] TO HAVE STAFF FAX OVER INFORMATION. WILL ATTEMPT AGAIN AT LATER TIME.
[2020-07-11 22:25] VITALS: BP 115/66
[2020-07-12] VITALS: BP 110/53
[2020-07-12] MEDS ORDERED: GERI-KOT8.6 MG PO (02:33)
[2020-07-12] MEDS ORDERED: LEVOTHYROXINE75 MCG PO (02:37)
[2020-07-12] MEDS ORDERED: MEGACE 40400 MG/10 PO (02:38)
[2020-07-12] MEDS ORDERED: OXYBUTYNIN5 MG PO (02:39)
[2020-07-12] MEDS ORDERED: OXYGEN NAS (02:40)
[2020-07-12] MEDS ORDERED: TRIPLE ANTIBIOT14 GM T (02:42)
[2020-07-12] MEDS ORDERED: CALMOSEPTINE OI71 GM T (02:42)
--- NOTE | 2020-07-12 02:45 | NUR ---
MED REC UPDATED WITH PAPERS SENT FROM [facility].
--- NOTE | 2020-07-12 04:20 | NUR ---
NOTIFIED OF CHANGES MADE TO MED REC ONCE PAPERS WERE RECEIVED FROM [employer]. ALSO DISCUSSED UA^UC ORDERED IN ER. PT IS INCONTINENT. INSTRUCTED TO STRAIGHT CATH FOR SAMPLE.
[2020-07-12 06:27] LABS: HEMATOCRIT 37.4 % (42.0-52.0); MEAN CELL VOLUME 100.8 fl (80.0-94.0); MEAN CORPUSCULAR HGB 31.8 pg (27.0-31.0); MEAN CORPUSCULAR HGB CONC 31.6 g/dl (33.0-37.0); MEAN PLATELET VOLUME 9.6 fl (9.6-12.3); PLATELET COUNT AUTOMATED 336 10*3/uL (130-400); RED BLOOD COUNT 3.71 10*6/uL (4.50-5.90); RED CELL DISTRI WIDTH 13.7 % (0-14.5); WHITE BLOOD COUNT 17.3 10*3/uL (4.8-10.8)
--- NOTE | 2020-07-12 06:37 | NUR ---
ATTEMPTED TO STRAIGHT CATH PT TWICE. MET RESISTANCE BOTH TIMES. PT STATES IT HURTS AND SAYS TO STOP. PT AGREES TO CONDOM CATH. CONDOM CATH APPLIED AND CONNECTED TO [facility] GABRIEL BAG. WILL RETRIEVE SPECIMEN FROM THERE IF DRAINS APPROPRIATELY.
[2020-07-12 06:38] LABS: BUN 36 mg/dl (7-24); CHLORIDE 106 mmol/L (98-107); POTASSIUM 4.9 mmol/L (3.5-5.1); SODIUM 139 mmol/L (136-145)
[2020-07-12 07:47] LABS: PLATELET SUFFICIENCY NORMAL (NORMAL); TOTAL CELLS COUNTED 100 #CELLS
[2020-07-12 08:00] VITALS: BP 120/64
--- NOTE | 2020-07-12 09:00 | NUR ---
patient is a resident of [facility] and will return when discharged. patient is a possibly discharge today, case management will make transportation arrangements
--- NOTE | 2020-07-12 09:26 | NUR ---
PHYSICAL THERAPY Physical Therapy evaluation completed on 5E with full evaluation to follow. Moderate complexity skilled PT evaluation per chart review and evaluation, [id number]. Recommend physical therapy per plan of care and SNF upon discharge. Thank you for this referral. Lorelei Lauren,PT,DPT
--- NOTE | 2020-07-12 09:30 | NUR ---
Occupational Therapy evaluation completed on five with full evaluation to follow. Recommend occupational therapy per plan of care and SNF upon discharge. Thank you for this referral. Sanaz Davalos OTR/L
[2020-07-12] MEDS ORDERED: LEVOFLOXACIN500 MG PO (10:54)
[2020-07-12] MEDS ORDERED: PREDNISONE10 MG PO (10:54)
[2020-07-12] MEDS ORDERED: LASIX40 MG PO (10:54)
--- NOTE | 2020-07-12 11:03 | NUR ---
Patient comes in from [facility]; Updated clinicals faxed for review and notified of patient discharging today. Patient is ok to return to [facility].
--- NOTE | 2020-07-12 11:49 | NUR ---
PHYSICAL THERAPY Nursing screen received and chart reviewed. Patient currently on PT caseload. Will continue to follow. Thank you. Lorelei Lauren,PT,DPT
[2020-07-12 11:58] LABS: BILIRUBIN Negative (Negative); BLOOD 1+ (Negative); CLARITY Clear (Clear); COLOR Yellow (Yellow); GLUCOSE Negative (Negative); KETONE Negative (Negative); LEUKO ESTERASE Trace (Negative); NITRITE Negative (Negative); UROBILINOGEN 0.2 E.U./dl (0.0-1.0)
[2020-07-12 12:11] LABS: BACTERIA 2+; MUCOUS 1+; RBC 31-40 rbc/hpf (0-2)
--- NOTE | 2020-07-12 12:30 | NUR ---
Discharge instructions reviewed with patient/family. Patient receptive and verbalizes understanding. Follow-up care arranged. Written instructions given to patient/family. ANA ROSA CORADO
--- NOTE | 2020-07-12 13:58 | NUR ---
OT NOTE Patient is currently on OT caseload. Will continue with POC as able. Thank you. Sanaz Davalos, OTR/L
== END 2020-07-12 12:30 | disposition home or self-care (01) | DRG 682 ==
LOC: ED 13:50 → EDHOLD 17:43 → 5E 07-11 19:04
PROVIDERS: Emergency Medicine; Hospitalist; ADMIT Student in an Organized Health Care Education/Training Program; ATTEND Student in an Organized Health Care Education/Training Program
DX: N17.0 Acute kidney failure with tubular necrosis (principal); G93.41 Metabolic encephalopathy; I50.33 Acute on chronic diastolic (congestive) heart failure; J44.1 Chronic obstructive pulmonary disease with (acute) exacerbation; E87.2 Acidosis; J96.11 Chronic respiratory failure with hypoxia; J96.12 Chronic respiratory failure with hypercapnia; R79.89 Other specified abnormal findings of blood chemistry; E03.9 Hypothyroidism, unspecified; R26.2 Difficulty in walking, not elsewhere classified; E86.0 Dehydration; N18.9 Chronic kidney disease, unspecified; G40.909 Epilepsy, unspecified, not intractable, without status epilepticus; I48.0 Paroxysmal atrial fibrillation; Z20.828 Contact with and (suspected) exposure to other viral communicable diseases; N18.2 Chronic kidney disease, stage 2 (mild); E11.22 Type 2 diabetes mellitus with diabetic chronic kidney disease; E11.65 Type 2 diabetes mellitus with hyperglycemia; D53.9 Nutritional anemia, unspecified; E78.2 Mixed hyperlipidemia; M19.90 Unspecified osteoarthritis, unspecified site; Z88.0 Allergy status to penicillin; Z88.8 Allergy status to other drugs, medicaments and biological substances; Z90.49 Acquired absence of other specified parts of digestive tract; Z82.49 Family history of ischemic heart disease and other diseases of the circulatory system; Z83.6 Family history of other diseases of the respiratory system; Z85.118 Personal history of other malignant neoplasm of bronchus and lung; Z79.4 Long term (current) use of insulin